=== PATIENT | female | born 1945 | race Hispanic/Latino ===

== ENCOUNTER 2020-08-09 07:44 | Outpatient (CLI) | payer OTHER ==
[2020-08-09 17:06] LABS: SARS-CoV-2 MS2 Positive; SARS-CoV-2 N Gene Negative; SARS-CoV-2 S Gene Negative; SARS-CoV-2 by NAA Not Detected (NotDetected); SARS-CoV-2 orf1ab Negative
== END 2020-08-09 07:45 | disposition home or self-care (01) ==
LOC: LABBT 07:44
PROVIDERS: ATTEND Family Medicine
DX: H43.12 Vitreous hemorrhage, left eye (principal); Z20.828 Contact with and (suspected) exposure to other viral communicable diseases
CPT/HCPCS: 87635; U0003

== ENCOUNTER 2020-08-14 09:43 | Day surgery (SDC) | payer MEDICARE ==
[2020-08-13 15:37] VITALS: BMI 30.7
[~2020-08-14 09:43] MED LIST: EPINEPHrine 0.3 MG in Ophthalmic Irrigation Solution 500 ML IRR SCH; Fentanyl 100 MCG/2 ML VIAL ONE; Midazolam HCl 2 mg/2 ml Vial ONE
[2020-08-14] MEDS ORDERED: Phenylephrine 2.5% Ophth Soln 5 ML BOT ONE (10:32)
[2020-08-14] MEDS ORDERED: Cyclopentolate 1% Opth Drop 2 ML BOT ONE (10:32)
[2020-08-14] MEDS ORDERED: Triamcinolone 40 MG/ML VIAL ONE (12:27)
[2020-08-14] MEDS ORDERED: Maxitrol 0.1% Opth Oint 3.5 GM TUBE ONE (12:27)
[2020-08-14] MEDS ORDERED: Bupivacaine PF 0.75% SDV 10 ML ONE (12:27)
[2020-08-14] MEDS ORDERED: Lidocaine 4% PF 5 ML AMP ONE (12:27)
--- NOTE | 2020-08-14 17:36 | OP ---
DATE OF PROCEDURE: 08/14/2020 PRINCIPAL PREOPERATIVE DIAGNOSES: 1. Proliferative diabetic retinopathy, left eye. 2. Vitreous hemorrhage, left eye. POSTOPERATIVE DIAGNOSES: 1. Proliferative diabetic retinopathy, left eye. 2. Vitreous hemorrhage, left eye. PROCEDURES PERFORMED: 1. 25-gauge pars plana vitrectomy, left eye. 2. Endolaser panretinal photocoagulation, left eye. ESTIMATED BLOOD LOSS: None. SPECIMENS REMOVED: None. COMPLICATIONS: None. ANESTHESIA: MAC with sub-Tenon's block. DESCRIPTION OF PROCEDURE: The patient was identified in the preoperative holding area, where the correct eye being the left eye was marked for surgery. The patient was taken to the operating room, where MAC anesthesia was induced. The left eye was prepped and draped in the usual sterile ophthalmic fashion for surgery. A wire-clip lid speculum was placed. An inferonasal conjunctival peritomy was fashioned with Lea scissors for administration of sub-Tenon's block. The block consisted of 1:1 ratio of 4% lidocaine and 0.75% Marcaine. A total of 5 mL was administered. A standard 25-gauge pars plana vitrectomy platform was fashioned with trocars placed approximately 3.5 mm from the limbus. The infusion was noted to be within the vitreous cavity prior to being turned on to an infusion pressure of 30 mmHg. The light pipe and microvitrector were introduced in the eye under visualization of the BIOM viewing system. A significant vitreous hemorrhage was noted within the vitreous cavity. A careful core and peripheral shave vitrectomy were performed. The vitreous hemorrhage was removed to the safest extent possible. Some vitreous hemorrhage was caked onto the retina inferiorly. An area of prior panretinal photocoagulation and therefore was not able to be safely removed. Following vitrectomy, endolaser was used to provide panretinal photocoagulation posterior to the preexisting panretinal photocoagulation. The cannulas were sequentially removed. All sclerotomies were noted to be watertight. Subconjunctival Kenalog was injected. The wire-cut lid speculum was removed followed by application of TobraDex ophthalmic ointment and a light patch and shield. The patient tolerated the procedure well and was taken to outpatient recovery area in good condition. Job ID: [id number]
== END 2020-08-14 12:40 | disposition home or self-care (01) ==
LOC: SDC 09:43
PROVIDERS: ATTEND Ophthalmology Retina Specialist
PROC: 08T53ZZ Resection of Left Vitreous, Percutaneous Approach (ICD-10-PCS; principal; 2020-08-14)
PROC: 08QF3ZZ Repair Left Retina, Percutaneous Approach (ICD-10-PCS; 2020-08-14)
DX: E11.3592 Type 2 diabetes mellitus with proliferative diabetic retinopathy without macular edema, left eye (principal); H43.12 Vitreous hemorrhage, left eye; Z79.4 Long term (current) use of insulin; Z79.899 Other long term (current) drug therapy; Z88.0 Allergy status to penicillin; Z91.048 Other nonmedicinal substance allergy status
CPT/HCPCS: 36416; J0171; J2001; J2250; J3010; J3301; J3490

== ENCOUNTER 2020-10-11 00:40 | Emergency (ER) | payer MEDICARE ==
[2020-10-11] MEDS ORDERED: Ibuprofen 800 MG TAB ONE ×2 (02:38→02:39)
--- NOTE | 2020-10-11 08:02 | RAD ---
3 views of the left ankle: 10/11/2020 COMPARISON: None available HISTORY: Leg pain, diabetic neuropathy FINDINGS: Soft tissue swelling is seen laterally. There is postoperative hardware within the proximal /mid fifth metatarsal shaft. The talar dome and ankle mortise demonstrate no acute findings. There is anterior soft tissue swelling on the lateral view. There is enthesophyte formation at the origin o f the plantar aponeurosis. Vascular calcifications overlie the left ankle. Moderate midfoot degenerative change present. IMPRESSION: Chronic findings as detailed above. No acute fracture or dislocation. Nonspecific lateral and anterior soft tissue swelling.
== END 2020-10-11 03:12 | disposition home or self-care (01) ==
LOC: ERS 00:40
DX: M25.572 Pain in left ankle and joints of left foot (principal); E11.40 Type 2 diabetes mellitus with diabetic neuropathy, unspecified

== ENCOUNTER 2020-10-22 09:45 | Outpatient (CLI) | payer MEDICARE ==
--- NOTE | 2020-10-22 12:27 | BD ---
BONE DENSITOMETRY USING DEXA: Date: 10/22/2020 HISTORY: Postmenopausal screening for osteoporosis. FINDINGS: Lumbar Spine: BMD (g/cm2) L1 0.683 T-Score: -2.8 Z-Score: -0.7 L2 0.740 T-Score: -2.6 Z-Score: -0.3 L3 0.748 T-Score: -3.1 Z-Score: -0.6 L4 0.693 T-Score: -3.3 Z-Score: -0.9 L1-L4 0.715 T-Score: -3.0 Z-Score: -0.7 Femoral Neck: 0.518 T-Score: -3.0 Z-Score: -1.0 Total Femur: 0.719 T-Score: -1.8 Z-Score: -0.1 IMPRESSION: Osteoporosis. POS: AH
== END 2020-10-22 09:46 | disposition home or self-care (01) ==
LOC: BICMAMMO 09:45
PROVIDERS: ATTEND Internal Medicine
DX: M81.0 Age-related osteoporosis without current pathological fracture (principal)
CPT/HCPCS: 77080

== ENCOUNTER 2020-11-14 11:23 | Outpatient (CLI) | payer MEDICARE | END 2020-11-14 11:24 | disposition home or self-care (01) | LOC: DTY/OP 11:23 → MWLC DTY 11:24 | PROVIDERS: ATTEND Internal Medicine | DX: E11.42 Type 2 diabetes mellitus with diabetic polyneuropathy (principal); E11.22 Type 2 diabetes mellitus with diabetic chronic kidney disease; N18.31 Chronic kidney disease, stage 3a | CPT/HCPCS: 97802 ==

== ENCOUNTER 2021-02-13 17:06 | Emergency (ER) | payer MEDICARE ==
[~2021-02-13 17:06] MED LIST changes: -EPINEPHrine 0.3 MG in Ophthalmic Irrigation Solution 500 ML IRR SCH; -Fentanyl 100 MCG/2 ML VIAL ONE; +Iopamidol-370 76% 500 ML 1 ML ONE; -Midazolam HCl 2 mg/2 ml Vial ONE
[2021-02-13] MEDS ORDERED: Morphine 4 MG/ML VIAL ONE ×2 (17:36→18:07)
[2021-02-13] MEDS ORDERED: Ondansetron PF 4 MG/2 ML Vial ONE (17:36)
[2021-02-13 18:03] LABS: #Eosinphils 0.1 thou/uL (0.0-0.7); #Lymphocytes 0.7 thou/uL (1.20-3.40); #Monocytes 0.2 thou/uL (0.11-0.59); #Neutrophils 7.3 thou/uL (1.40-6.50); %Basophils 0.1 % (0.0-1.0); %Eosinophils 0.9 % (0.0-10.0); %Lymphocytes 8.9 % (21.0-51.0); %Monocytes 2.5 % (0.0-10.0); %Neutrophils 87.7 % (42.0-75.0); Hemoglobin 12.6 g/dL (12.0-16.0); Mean Corpuscular HGB CONC 34.8 g/dL (32.0-36.0); Mean Corpuscular Hemoglobin 31.3 pg (27.0-31.0); Mean Corpuscular Volume 90.2 fL (78.0-98.0); Mean Platelet Volume 8.5 fL (7.4-10.4); Platelet Count 87 thou/uL (130-400); RBC Distribution Width 11.8 % (11.5-14.5); Red Blood Cell (RBC) Count 4.03 mill/uL (4.20-5.40); White Blood Cell (WBC) Count 8.4 thou/uL (4.8-10.8)
[2021-02-13 18:25] LABS: ALT (SGPT) 40 U/L (8-55); AST (SGOT) 77 U/L (5-34); Albumin 3.4 g/dL (3.4-4.8); Alkaline Phosphatase 233 U/L (40-110); Anion Gap 13 mmol/L (10-20); BUN (Urea Nitrogen) 25 mg/dL (9.8-20.1); Bilirubin, Total 0.6 mg/dL (0.2-1.2); Calc. Creatinine Clearance 0 mL/min (70-130); Calcium 8.8 mg/dL (7.8-10.44); Carbon Dioxide 25 mmol/L (23-31); Chloride 103 mmol/L (98-107); Globulin 3.9 g/dL (2.4-3.5); Glucose 200 mg/dL (83-110); Lipase 45 U/L (8-78); Potassium 3.7 mmol/L (3.5-5.1); Protein, Total 7.3 g/dL (5.8-8.1); Sodium 137 mmol/L (136-145)
[2021-02-13 18:43] LABS: Bilirubin Negative (Negative); Blood, Urine 1+ (Negative); Clarity Turbid (Clear); Glucose, Urine (Dipstick) Greater than 1000 mg/dL (Negative); Ketone, Urine Negative (Negative); Leukocyte 500 Leu/uL (Negative); Nitrite Negative (Negative); Protein, Urine (Dipstick) 20 mg/dL (Neg-Trace); Specific Gravity, Urine 1.011 (1.002-1.036); Squamous Epithelial 0-3 HPF (0-3); Urobilinogen Normal mg/dL (Less than 2); WBC/HPF Greater than 50 HPF (0-3)
[2021-02-13 18:44] LABS: Bacteria/HPF 1+ HPF (None Seen)
[2021-02-13] MEDS ORDERED: cefTRIAXone\\ROCEPHIN 2 GM VIAL ONE (19:05)
== END 2021-02-13 20:19 | disposition home or self-care (01) ==
LOC: ERS 17:06
DX: N12 Tubulo-interstitial nephritis, not specified as acute or chronic (principal); R94.5 Abnormal results of liver function studies; E11.40 Type 2 diabetes mellitus with diabetic neuropathy, unspecified; Z79.4 Long term (current) use of insulin
CPT/HCPCS: 36415; 74177; 80053; 81003; 81015; 83690; 85025; 87077; 87086; 87186; 93005; 96365; 96375; J0696; J2270; J2405; Q9967

== ENCOUNTER 2021-02-25 12:29 | Emergency (ER) | payer MEDICARE ==
[2021-02-25] MEDS ORDERED: Ondansetron PF 4 MG/2 ML Vial ONE (12:45)
[2021-02-25] MEDS ORDERED: Sucralfate 1 GM/10 ML UDCUP ONE (13:10)
[2021-02-25 13:19] LABS: #Basophils 0.1 thou/uL (0.0-0.2); #Eosinphils 0.1 thou/uL (0.0-0.7); #Lymphocytes 0.6 thou/uL (1.20-3.40); #Monocytes 0.1 thou/uL (0.11-0.59); #Neutrophils 5.4 thou/uL (1.40-6.50); %Basophils 1.1 % (0.0-1.0); %Eosinophils 1.8 % (0.0-10.0); %Lymphocytes 9.6 % (21.0-51.0); %Monocytes 0.8 % (0.0-10.0); %Neutrophils 86.7 % (42.0-75.0); Hemoglobin 12.1 g/dL (12.0-16.0); Mean Corpuscular HGB CONC 32.9 g/dL (32.0-36.0); Mean Corpuscular Hemoglobin 29.7 pg (27.0-31.0); Mean Corpuscular Volume 90.3 fL (78.0-98.0); Mean Platelet Volume 8.1 fL (7.4-10.4); Platelet Count 110 thou/uL (130-400); RBC Distribution Width 11.9 % (11.5-14.5); Red Blood Cell (RBC) Count 4.08 mill/uL (4.20-5.40); White Blood Cell (WBC) Count 6.3 thou/uL (4.8-10.8)
[2021-02-25 13:35] LABS: ALT (SGPT) 25 U/L (8-55); AST (SGOT) 35 U/L (5-34); Albumin 3.2 g/dL (3.4-4.8); Alkaline Phosphatase 159 U/L (40-110); Anion Gap 13 mmol/L (10-20); BUN (Urea Nitrogen) 21 mg/dL (9.8-20.1); Bilirubin, Total 0.8 mg/dL (0.2-1.2); Calc. Creatinine Clearance 0 mL/min (70-130); Calcium 8.6 mg/dL (7.8-10.44); Carbon Dioxide 26 mmol/L (23-31); Chloride 102 mmol/L (98-107); Globulin 3.7 g/dL (2.4-3.5); Glucose 349 mg/dL (83-110); Lipase 33 U/L (8-78); Potassium 4.2 mmol/L (3.5-5.1); Protein, Total 6.9 g/dL (5.8-8.1); Sodium 137 mmol/L (136-145)
== END 2021-02-25 15:10 | disposition home or self-care (01) ==
LOC: ERS 12:29
DX: R11.2 Nausea with vomiting, unspecified (principal); R10.84 Generalized abdominal pain; E11.40 Type 2 diabetes mellitus with diabetic neuropathy, unspecified; R19.7 Diarrhea, unspecified
CPT/HCPCS: 36415; 36416; 74177; 80053; 83690; 84484; 85025; 86140; 93005; 96374; J2405

== ENCOUNTER 2021-09-27 14:03 | Outpatient (CLI) | payer MEDICARE ==
[2021-09-28 13:56] LABS: SARS-CoV-2 PCR by NAA Not Detected (NotDetected)
== END 2021-09-27 14:04 | disposition home or self-care (01) ==
LOC: LABBT 14:03
PROVIDERS: ATTEND Ophthalmology Retina Specialist
DX: Z01.812 Encounter for preprocedural laboratory examination (principal); Z20.822 Contact with and (suspected) exposure to COVID-19
CPT/HCPCS: U0003; U0005

== ENCOUNTER 2021-10-01 08:02 | Day surgery (SDC) | payer MEDICARE ==
[2021-09-30 12:00] VITALS: BMI 28.3
[~2021-10-01 08:02] MED LIST changes: +EPINEPHrine 0.3 MG in Ophthalmic Irrigation Solution 500 ML IRR SCH; +Fentanyl 100 MCG/2 ML VIAL ONE; -Iopamidol-370 76% 500 ML 1 ML ONE; +Midazolam HCl 2 mg/2 ml Vial ONE
[2021-10-01] MEDS ORDERED: Cyclopentolate 1% Opth Drop 2 ML BOT ONE (08:17)
[2021-10-01] MEDS ORDERED: Phenylephrine 2.5% Ophth Soln 5 ML BOT ONE (08:17)
[2021-10-01] MEDS ORDERED: Famotidine/PF 20 mg/2ml Vial ONE (08:58)
[2021-10-01] MEDS ORDERED: Maxitrol 0.1% Opth Oint 3.5 GM TUBE ONE (10:33)
[2021-10-01] MEDS ORDERED: Bupivacaine PF 0.75% SDV 10 ML ONE (10:33)
[2021-10-01] MEDS ORDERED: Lidocaine 4% PF 5 ML AMP ONE (10:33)
[2021-10-01] MEDS ORDERED: Triamcinolone 40 MG/ML VIAL ONE (10:33)
[2021-10-01] MEDS ORDERED: PROPOFOL 200 MG/20 ML VIAL ONE (10:33)
== END 2021-10-01 11:48 | disposition home or self-care (01) ==
LOC: SDC 08:02
PROVIDERS: ATTEND Ophthalmology Retina Specialist
PROC: 08T53ZZ Resection of Left Vitreous, Percutaneous Approach (ICD-10-PCS; principal; 2021-10-01)
PROC: 08QF3ZZ Repair Left Retina, Percutaneous Approach (ICD-10-PCS; 2021-10-01)
DX: H43.12 Vitreous hemorrhage, left eye (principal); Z79.4 Long term (current) use of insulin; Z88.0 Allergy status to penicillin; Z91.048 Other nonmedicinal substance allergy status
CPT/HCPCS: 36416; J0171; J2250; J2704; J3010; J3301; J3490; S0028

== ENCOUNTER 2021-10-24 14:44 | Emergency (ER) | payer MEDICARE ==
[2021-10-24] MEDS ORDERED: Ondansetron PF 4 MG/2 ML Vial ONE (15:38)
[2021-10-24 16:13] LABS: #Lymphocytes 1.3 thou/uL (1.20-3.40); #Monocytes 0.2 thou/uL (0.11-0.59); #Neutrophils 2.4 thou/uL (1.40-6.50); %Eosinophils 0.2 % (0.0-10.0); %Lymphocytes 32.9 % (21.0-51.0); %Monocytes 5.7 % (0.0-10.0); %Neutrophils 61.2 % (42.0-75.0); Hemoglobin 13.5 g/dL (12.0-16.0); Mean Corpuscular HGB CONC 34.9 g/dL (32.0-36.0); Mean Corpuscular Hemoglobin 31.6 pg (27.0-31.0); Mean Corpuscular Volume 90.7 fL (78.0-98.0); Mean Platelet Volume 7.9 fL (7.4-10.4); Platelet Count 72 thou/uL (130-400); RBC Distribution Width 11.8 % (11.5-14.5); Red Blood Cell (RBC) Count 4.27 mill/uL (4.20-5.40)
[2021-10-24 16:44] LABS: ALT (SGPT) 25 U/L (8-55); AST (SGOT) 37 U/L (5-34); Albumin 3.2 g/dL (3.4-4.8); Alkaline Phosphatase 177 U/L (40-110); Anion Gap 14 mmol/L (10-20); BUN (Urea Nitrogen) 29 mg/dL (9.8-20.1); Bilirubin, Total 0.9 mg/dL (0.2-1.2); Calc. Creatinine Clearance 0 mL/min (70-130); Calcium 8.8 mg/dL (7.8-10.44); Carbon Dioxide 27 mmol/L (23-31); Chloride 100 mmol/L (98-107); Globulin 4.3 g/dL (2.4-3.5); Glucose 269 mg/dL (83-110); Potassium 4.4 mmol/L (3.5-5.1); Protein, Total 7.5 g/dL (5.8-8.1); Sodium 137 mmol/L (136-145)
== END 2021-10-24 19:17 | disposition home or self-care (01) ==
LOC: ERS 14:44
DX: U07.1 COVID-19 (principal); J12.82 Pneumonia due to coronavirus disease 2019; R94.5 Abnormal results of liver function studies; E11.40 Type 2 diabetes mellitus with diabetic neuropathy, unspecified; Z79.4 Long term (current) use of insulin
CPT/HCPCS: 71045; 80053; 85025; 93005; 96374; J2405

== ENCOUNTER 2021-11-02 19:45 | Inpatient (IN) | payer MEDICARE, OTHER ==
[~2021-11-02 19:45] MED LIST changes: -EPINEPHrine 0.3 MG in Ophthalmic Irrigation Solution 500 ML IRR SCH; -Fentanyl 100 MCG/2 ML VIAL ONE; +Iopamidol-370 76% 500 ML 1 ML ONE; -Midazolam HCl 2 mg/2 ml Vial ONE
[2021-11-02 21:01] LABS: Actual Bicarbonate (HCO3v) 26 mEq/L (22-28); Analyzer IN Cardio ER; Base Excess 1.8 mEq/L (-2.0 to +3.0); Calcium, Ionized (venous) 1.03 mmol/L (1.16-1.32); Chloride (VBG) 98 mmol/L (98-106); Hemoglobin (Hb) 13.3 g/dL (11.7-16.1); Potassium (VBG) 3.63 mmol/L (3.70-5.30); Sodium 133.6 mmol/L (133-146); pH (venous) 7.46 (7.32-7.43)
[2021-11-02 21:10] LABS: #Eosinphils 0.1 thou/uL (0.0-0.7); #Monocytes 0.4 thou/uL (0.11-0.59); #Neutrophils 3.9 thou/uL (1.40-6.50); %Basophils 0.3 % (0.0-1.0); %Eosinophils 1.3 % (0.0-10.0); %Lymphocytes 18.8 % (21.0-51.0); %Monocytes 7.1 % (0.0-10.0); %Neutrophils 72.6 % (42.0-75.0); Hemoglobin 12.5 g/dL (12.0-16.0); Mean Corpuscular HGB CONC 34.7 g/dL (32.0-36.0); Mean Corpuscular Hemoglobin 30.9 pg (27.0-31.0); Platelet Count 160 thou/uL (130-400); RBC Distribution Width 11.9 % (11.5-14.5); Red Blood Cell (RBC) Count 4.04 mill/uL (4.20-5.40); White Blood Cell (WBC) Count 5.4 thou/uL (4.8-10.8)
[2021-11-02 21:24] LABS: ALT (SGPT) 13 U/L (8-55); AST (SGOT) 17 U/L (5-34); Albumin 2.6 g/dL (3.4-4.8); Alkaline Phosphatase 128 U/L (40-110); Anion Gap 13 mmol/L (10-20); BUN (Urea Nitrogen) 28 mg/dL (9.8-20.1); Bilirubin, Total 0.6 mg/dL (0.2-1.2); CK (CPK) 15 U/L (29-168); Calc. Creatinine Clearance 0 mL/min (70-130); Calcium 8.1 mg/dL (7.8-10.44); Carbon Dioxide 29 mmol/L (23-31); Chloride 97 mmol/L (98-107); Globulin 3.5 g/dL (2.4-3.5); Glucose 446 mg/dL (83-110); Lipase 58 U/L (8-78); Potassium 3.7 mmol/L (3.5-5.1); Protein, Total 6.1 g/dL (5.8-8.1); Sodium 135 mmol/L (136-145)
[2021-11-02] MEDS ORDERED: cefTRIAXone\\ROCEPHIN 1 GM VIAL ONE (22:34)
[2021-11-02] MEDS ORDERED: Azithromycin 500 MG VIAL ONE (22:34)
[2021-11-02] MEDS ORDERED: Insulin Regular 300 UNITS/3 ML VIAL ONE (22:35)
[2021-11-02] MEDS ORDERED: Ondansetron PF 4 MG/2 ML Vial IVP PRN (22:45)
[2021-11-02] MEDS ORDERED: Ondansetron ODT 4 MG TAB SL PRN (22:45)
[2021-11-02 23:24] LABS: Bacteria/HPF 2+ HPF (None Seen); Bilirubin Negative (Negative); Blood, Urine Negative (Negative); Clarity Turbid (Clear); Glucose, Urine (Dipstick) Greater than 1000 mg/dL (Negative); Ketone, Urine Negative (Negative); Leukocyte Negative Leu/uL (Negative); Nitrite 2+ (Negative); Protein, Urine (Dipstick) Negative (Neg-Trace); RBC/HPF None Seen HPF (0-3); Specific Gravity, Urine 1.031 (1.002-1.036); Squamous Epithelial None Seen HPF (0-3); WBC/HPF 0-3 HPF (0-3)
[2021-11-03 00:39] VITALS: BMI 24.6
[2021-11-03] MEDS: Sodium Chloride 0.9% 1,000 ML IV SCH ×2 (01:12→10:19)
[2021-11-03] MEDS ORDERED: Acetaminophen 325 MG TAB PO PRN (08:28)
[2021-11-03] MEDS ORDERED: Loperamide HCl 2 MG CAP PO PRN ×2 (08:28)
[2021-11-03] MEDS ORDERED: HYDROcodone/Acetaminophen 5/325 mg Tablet PO PRN (08:28)
[2021-11-03] MEDS ORDERED: Dextrose 5% in Water 1,000 ML IV PRN (08:32)
[2021-11-03] MEDS ORDERED: Dextrose 50% Abboject 50 ML SYRINGE SLOW IVP PRN (08:32)
[2021-11-03] MEDS ORDERED: Famotidine 20 MG TAB PO SCH (09:00)
[2021-11-03] MEDS ORDERED: Insulin Glargine 25 UNITS in Pre-Filled Syringe 1 EACH SC SCH (09:00)
[2021-11-03] MEDS ORDERED: Albuterol 200 PUFF (6.7GM INHALER) INH PRN (09:45)
[2021-11-03] MEDS: Ascorbic Acid 500 mg Chewable Tablet PO SCH (10:09)
[2021-11-03] MEDS: Cholecalciferol (Vitamin D3) 400 UNITS TAB PO SCH (10:09)
[2021-11-03] MEDS: Zinc Sulfate 220 MG CAP PO SCH (10:10)
[2021-11-03] MEDS: Enoxaparin Sodium 40 MG/0.4 ML SYRINGE SC SCH (10:12)
[2021-11-03] MEDS: Dexamethasone 4 mg/ml Vial SLOW IVP SCH (10:45)
[2021-11-03] MEDS: HumaLOG 300 UNITS/3 ML VIAL SC PRN (17:32)
[2021-11-03] MEDS: Lantus 1000 UNITS/10 ML VIAL SC SCH (21:14)
[2021-11-03] MEDS: cefTRIAXone\\ROCEPHIN 1 GM in Sodium Chloride 0.9% 100 ML IVPB SCH (23:59)
[2021-11-04] MEDS: HumaLOG 300 UNITS/3 ML VIAL SC PRN ×2 (06:22→17:34)
[2021-11-04 08:12] LABS: Hemoglobin A1c 11.6 % (4.0-6.0)
[2021-11-04 08:20] LABS: #Basophils 0.1 thou/uL (0.0-0.2); #Lymphocytes 0.8 thou/uL (1.20-3.40); #Monocytes 0.1 thou/uL (0.11-0.59); #Neutrophils 3.1 thou/uL (1.40-6.50); %Basophils 2.3 % (0.0-1.0); %Eosinophils 0.2 % (0.0-10.0); %Lymphocytes 20.4 % (21.0-51.0); %Monocytes 2.6 % (0.0-10.0); %Neutrophils 74.5 % (42.0-75.0); Hemoglobin 12.3 g/dL (12.0-16.0); Mean Corpuscular HGB CONC 33.5 g/dL (32.0-36.0); Mean Corpuscular Hemoglobin 30.2 pg (27.0-31.0); Mean Corpuscular Volume 90.4 fL (78.0-98.0); Mean Platelet Volume 7.4 fL (7.4-10.4); Platelet Count 144 thou/uL (130-400); RBC Distribution Width 12.1 % (11.5-14.5); Red Blood Cell (RBC) Count 4.07 mill/uL (4.20-5.40); White Blood Cell (WBC) Count 4.1 thou/uL (4.8-10.8)
[2021-11-04 08:32] LABS: ALT (SGPT) 17 U/L (8-55); AST (SGOT) 19 U/L (5-34); Albumin 2.5 g/dL (3.4-4.8); Alkaline Phosphatase 104 U/L (40-110); Anion Gap 14 mmol/L (10-20); BUN (Urea Nitrogen) 11 mg/dL (9.8-20.1); Bilirubin, Total 0.4 mg/dL (0.2-1.2); CRP (Inflammatory) 4.74 mg/dL (= or < 0.5); Calc. Creatinine Clearance 61 mL/min (70-130); Calcium 7.5 mg/dL (7.8-10.44); Carbon Dioxide 23 mmol/L (23-31); Chloride 103 mmol/L (98-107); Globulin 3.8 g/dL (2.4-3.5); Glucose 195 mg/dL (83-110); Protein, Total 6.3 g/dL (5.8-8.1); Sodium 137 mmol/L (136-145)
[2021-11-04] MEDS: Enoxaparin Sodium 40 MG/0.4 ML SYRINGE SC SCH (08:53)
[2021-11-04] MEDS: Dexamethasone 4 mg/ml Vial SLOW IVP SCH (08:54)
[2021-11-04] MEDS: Zinc Sulfate 220 MG CAP PO SCH (08:54)
[2021-11-04] MEDS: Cholecalciferol (Vitamin D3) 400 UNITS TAB PO SCH (08:54)
[2021-11-04] MEDS: Ascorbic Acid 500 mg Chewable Tablet PO SCH (08:54)
[2021-11-04] MEDS ORDERED: Potassium Chloride 20 MEQ TAB PO SCH (09:30)
[2021-11-04] MEDS: Lantus 1000 UNITS/10 ML VIAL SC SCH (20:15)
[2021-11-04] MEDS: cefTRIAXone\\ROCEPHIN 1 GM in Sodium Chloride 0.9% 100 ML IVPB SCH (23:18)
[2021-11-05] MEDS: HumaLOG 300 UNITS/3 ML VIAL SC PRN ×2 (06:08→14:05)
[2021-11-05 07:39] LABS: Anion Gap 12 mmol/L (10-20); BUN (Urea Nitrogen) 15 mg/dL (9.8-20.1); Calc. Creatinine Clearance 55 mL/min (70-130); Calcium 8.1 mg/dL (7.8-10.44); Carbon Dioxide 25 mmol/L (23-31); Chloride 104 mmol/L (98-107); Glucose 202 mg/dL (83-110); Potassium 3.6 mmol/L (3.5-5.1); Sodium 137 mmol/L (136-145)
[2021-11-05] MEDS: Zinc Sulfate 220 MG CAP PO SCH (09:38)
[2021-11-05] MEDS: Enoxaparin Sodium 40 MG/0.4 ML SYRINGE SC SCH (09:38)
[2021-11-05] MEDS: Ascorbic Acid 500 mg Chewable Tablet PO SCH (09:38)
[2021-11-05] MEDS: Cholecalciferol (Vitamin D3) 400 UNITS TAB PO SCH (09:38)
[2021-11-05 10:01] VITALS: BP 90/57; TEMP 97.4
[2021-11-05] MEDS ORDERED: Dexamethasone 4 mg/ml Vial ONE (14:00)
[2021-11-05] MEDS: Dexamethasone 4 mg/ml Vial SLOW IVP SCH (14:05)
== END 2021-11-05 17:10 | disposition home or self-care (01) | DRG 177 ==
LOC: ERS 19:45 → T4-B 22:41
PROVIDERS: ADMIT Student in an Organized Health Care Education/Training Program; ATTEND Family Medicine
DX: U07.1 COVID-19 (principal); J96.01 Acute respiratory failure with hypoxia; J12.82 Pneumonia due to coronavirus disease 2019; N39.0 Urinary tract infection, site not specified; N17.9 Acute kidney failure, unspecified; E86.9 Volume depletion, unspecified; E11.65 Type 2 diabetes mellitus with hyperglycemia; E11.40 Type 2 diabetes mellitus with diabetic neuropathy, unspecified; M81.0 Age-related osteoporosis without current pathological fracture; Z79.4 Long term (current) use of insulin; Z90.49 Acquired absence of other specified parts of digestive tract; Z90.710 Acquired absence of both cervix and uterus; Z88.0 Allergy status to penicillin; Z91.048 Other nonmedicinal substance allergy status
CPT/HCPCS: 36415; 36416; 71045; 71275; 80048; 80053; 81003; 81015; 82010; 82550; 82805; 83036; 83605; 83690; 83880; 83930; 84484; 85025; 86140; 87040; 87086; 93005; 94760; J0456; J0696; J1100; J1650; J1815; J3490; J7050; Q9967

== ENCOUNTER 2022-02-25 12:04 | Observation (INO) | payer OTHER ==
[2022-02-25 12:57] LABS: #Basophils 0.1 thou/uL (0.0-0.2); #Eosinphils 0.2 thou/uL (0.0-0.7); #Lymphocytes 1.9 thou/uL (1.20-3.40); #Monocytes 0.4 thou/uL (0.11-0.59); #Neutrophils 2.6 thou/uL (1.40-6.50); %Basophils 1.9 % (0.0-1.0); %Eosinophils 3.4 % (0.0-10.0); %Lymphocytes 37.5 % (21.0-51.0); %Monocytes 7.3 % (0.0-10.0); %Neutrophils 49.8 % (42.0-75.0); Hemoglobin 11.6 g/dL (12.0-16.0); Mean Corpuscular HGB CONC 33.7 g/dL (32.0-36.0); Mean Corpuscular Hemoglobin 31.4 pg (27.0-31.0); Mean Corpuscular Volume 93.3 fL (78.0-98.0); Mean Platelet Volume 7.7 fL (7.4-10.4); Platelet Count 99 thou/uL (130-400); Red Blood Cell (RBC) Count 3.69 mill/uL (4.20-5.40); White Blood Cell (WBC) Count 5.1 thou/uL (4.8-10.8)
[2022-02-25 13:16] LABS: ALT (SGPT) 22 U/L (8-55); AST (SGOT) 27 U/L (5-34); Albumin 3.1 g/dL (3.4-4.8); Alkaline Phosphatase 152 U/L (40-110); Anion Gap 10 mmol/L (10-20); BUN (Urea Nitrogen) 27 mg/dL (9.8-20.1); Bilirubin, Total 0.5 mg/dL (0.2-1.2); Calc. Creatinine Clearance 0 mL/min (70-130); Calcium 8.4 mg/dL (7.8-10.44); Carbon Dioxide 24 mmol/L (23-31); Chloride 107 mmol/L (98-107); Globulin 3.1 g/dL (2.4-3.5); Glucose 156 mg/dL (83-110); Lipase 93 U/L (8-78); Potassium 4.3 mmol/L (3.5-5.1); Protein, Total 6.2 g/dL (5.8-8.1); Sodium 137 mmol/L (136-145)
[2022-02-25] MEDS ORDERED: Ondansetron PF 4 MG/2 ML Vial IVP PRN (14:34)
[2022-02-25] MEDS ORDERED: Nitroglycerin 0.4 MG TAB (25 Tab Bottle) SL PRN (14:34)
[2022-02-25] MEDS ORDERED: Acetaminophen 325 MG TAB PO PRN (14:34)
[2022-02-25] MEDS ORDERED: hydrALAZINE 20 MG/ML VIAL SLOW IVP PRN (14:34)
[2022-02-25] MEDS ORDERED: Ondansetron ODT 4 MG TAB PO PRN (14:34)
[2022-02-25] MEDS ORDERED: Aspirin Chewable 81 MG TAB PO SCH (15:00)
[2022-02-25 16:18] VITALS: BMI 27.1
[2022-02-25] MEDS ORDERED: HumaLOG 300 UNITS/3 ML VIAL SC PRN ×2 (16:34)
[2022-02-25] MEDS ORDERED: Dextrose 50% Abboject 50 ML SYRINGE SLOW IVP PRN (16:34)
[2022-02-25] MEDS ORDERED: Dextrose 5% in Water 1,000 ML IV PRN (16:34)
[2022-02-25] MEDS ORDERED: Aspirin 81 mg Enteric Coated Tablet PO SCH (16:45)
[2022-02-25 17:15] LABS: Troponin I Less than 0.010 ng/mL (< 0.028)
[2022-02-25 18:50] LABS: SARS-CoV-2 NAA Rapid Test Not Detected (NotDetected)
[2022-02-25 20:17] LABS: Troponin I Less than 0.010 ng/mL (< 0.028)
[2022-02-25] MEDS ORDERED: Atorvastatin Calcium 40 MG TAB PO SCH (21:00)
[2022-02-25] MEDS ORDERED: Insulin Glargine 30 UNITS/0.3 ML VIAL SC SCH (21:00)
[2022-02-26 05:21] LABS: #Eosinphils 0.2 thou/uL (0.0-0.7); #Lymphocytes 2.1 thou/uL (1.20-3.40); #Monocytes 0.3 thou/uL (0.11-0.59); #Neutrophils 2.6 thou/uL (1.40-6.50); %Basophils 0.9 % (0.0-1.0); %Eosinophils 3.4 % (0.0-10.0); %Lymphocytes 40.1 % (21.0-51.0); %Monocytes 6.2 % (0.0-10.0); %Neutrophils 49.4 % (42.0-75.0); Hemoglobin 12.9 g/dL (12.0-16.0); Mean Corpuscular HGB CONC 33.1 g/dL (32.0-36.0); Mean Corpuscular Hemoglobin 31.3 pg (27.0-31.0); Mean Corpuscular Volume 94.3 fL (78.0-98.0); Mean Platelet Volume 7.8 fL (7.4-10.4); Platelet Count 104 thou/uL (130-400); Red Blood Cell (RBC) Count 4.13 mill/uL (4.20-5.40); White Blood Cell (WBC) Count 5.2 thou/uL (4.8-10.8)
[2022-02-26 05:34] LABS: Anion Gap 11 mmol/L (10-20); BUN (Urea Nitrogen) 20 mg/dL (9.8-20.1); Calc. Creatinine Clearance 63 mL/min (70-130); Calcium 8.9 mg/dL (7.8-10.44); Carbon Dioxide 25 mmol/L (23-31); Cardiac Risk 2.6 (Less than 4.5); Chloride 108 mmol/L (98-107); Cholesterol 121 mg/dl (< 200 Desired); Glucose 97 mg/dL (83-110); HDL Cholesterol 46 mg/dL (>60 Neg Risk); LDL Cholesterol, Calculated 58 mg/dL; Potassium 3.8 mmol/L (3.5-5.1); Sodium 140 mmol/L (136-145); Triglycerides 87 mg/dL (Less than 150)
[2022-02-26] MEDS ORDERED: Aspirin Chewable 81 MG TAB PO SCH (09:00)
[2022-02-26] MEDS ORDERED: Enoxaparin Sodium 40 MG/0.4 ML SYRINGE SC SCH (09:00)
[2022-02-26] MEDS ORDERED: ADENOSINE 60 MG/20 ML VIAL ONE (09:07)
[2022-02-26 15:56] VITALS: BP 141/70; TEMP 97.8
== END 2022-02-26 17:53 | disposition home or self-care (01) ==
LOC: ERS 12:04 → 2SW 13:51
PROVIDERS: ADMIT Internal Medicine; ATTEND Internal Medicine
DX: R07.2 Precordial pain (principal); R20.0 Anesthesia of skin; E11.42 Type 2 diabetes mellitus with diabetic polyneuropathy; I12.9 Hypertensive chronic kidney disease with stage 1 through stage 4 chronic kidney disease, or unspecified chronic kidney disease; E11.22 Type 2 diabetes mellitus with diabetic chronic kidney disease; N18.2 Chronic kidney disease, stage 2 (mild); D63.1 Anemia in chronic kidney disease; D69.6 Thrombocytopenia, unspecified; H54.61 Unqualified visual loss, right eye, normal vision left eye; Z86.16 Personal history of COVID-19; Z79.4 Long term (current) use of insulin; Z79.84 Long term (current) use of oral hypoglycemic drugs; Z79.899 Other long term (current) drug therapy; Z88.0 Allergy status to penicillin; Z91.048 Other nonmedicinal substance allergy status; Z20.822 Contact with and (suspected) exposure to COVID-19
CPT/HCPCS: 70450; 70551; 71045; 78452; 80048; 80053; 80061; 82607; 82746; 82962 ×2; 83690; 84484 ×2; 85025 ×2; 93017; 93306; 94760 ×2; 97139 ×4; 99285; A9500; U0002; 36415; 36416; 96372; G0378; J0153; J1650; J1815

== ENCOUNTER 2022-05-26 20:26 | Emergency (ER) | payer OTHER ==
[2022-05-26] MEDS ORDERED: Dexameth. Sod Phosp. 10 MG/ML (CHEMO USE ONLY) ONE (21:43)
== END 2022-05-26 22:04 | disposition home or self-care (01) ==
LOC: ERS 20:26
DX: L29.9 Pruritus, unspecified (principal); R21 Rash and other nonspecific skin eruption; E11.9 Type 2 diabetes mellitus without complications; Z79.4 Long term (current) use of insulin
CPT/HCPCS: 96372; 99282; J1100

== ENCOUNTER 2022-06-22 09:37 | Emergency (ER) | payer OTHER ==
[2022-06-22] MEDS ORDERED: Iopamidol-370 76% 500 ML 1 ML ONE (09:38)
[2022-06-22 10:39] LABS: Hemoglobin 11.1 g/dL (12.0-16.0); Mean Corpuscular HGB CONC 33.1 g/dL (32.0-36.0); Mean Corpuscular Hemoglobin 31.1 pg (27.0-31.0); Mean Platelet Volume 7.9 fL (7.4-10.4); Platelet Count 107 thou/uL (130-400); RBC Distribution Width 12.1 % (11.5-14.5); Red Blood Cell (RBC) Count 3.57 mill/uL (4.20-5.40); White Blood Cell (WBC) Count 7.4 thou/uL (4.8-10.8)
[2022-06-22 10:50] LABS: ALT (SGPT) 21 U/L (8-55); AST (SGOT) 32 U/L (5-34); Alkaline Phosphatase 147 U/L (40-110); Anion Gap 14 mmol/L (10-20); BUN (Urea Nitrogen) 24 mg/dL (9.8-20.1); Bilirubin, Total 0.5 mg/dL (0.2-1.2); Calc. Creatinine Clearance 0 mL/min (70-130); Calcium 8.4 mg/dL (7.8-10.44); Carbon Dioxide 26 mmol/L (23-31); Chloride 104 mmol/L (98-107); Estimated GFR 78; Globulin 3.3 g/dL (2.4-3.5); Glucose 65 mg/dL (83-110); Potassium 3.8 mmol/L (3.5-5.1); Protein, Total 6.3 g/dL (5.8-8.1); Sodium 140 mmol/L (136-145)
[2022-06-22 11:05] LABS: #Eosinphils 0.6 thou/uL (0.0-0.7); #Lymphocytes 1.9 thou/uL (1.20-3.40); #Monocytes 0.5 thou/uL (0.11-0.59); #Neutrophils 4.4 thou/uL (1.40-6.50); %Basophils 0.5 % (0.0-1.0); %Eosinophils 7.5 % (0.0-10.0); %Lymphocytes 26.1 % (21.0-51.0); %Monocytes 6.1 % (0.0-10.0); %Neutrophils 59.8 % (42.0-75.0); Platelet Morphology Comment Appears Decreased; RBC Morphology Normal
[2022-06-22] MEDS ORDERED: Morphine 4 MG/ML VIAL ONE (11:43)
[2022-06-22] MEDS ORDERED: cefTRIAXone\\ROCEPHIN 1 GM VIAL ONE (12:41)
[2022-06-22] MEDS ORDERED: Dexamethasone 10 MG/ML VIAL ONE (12:41)
== END 2022-06-22 13:21 | disposition home or self-care (01) ==
LOC: ERS 09:37
DX: K11.3 Abscess of salivary gland (principal); E11.9 Type 2 diabetes mellitus without complications; Z79.4 Long term (current) use of insulin; Z79.899 Other long term (current) drug therapy
CPT/HCPCS: 70491; 80053; 85025; 96365; 96375; J0696; J1100; J2270; Q9967

== ENCOUNTER 2022-10-23 15:25 | Emergency (ER) | payer OTHER ==
[2022-10-23] MEDS ORDERED: HYDROcodone/Acetaminophen 5/325 mg Tablet ONE (16:02)
[2022-10-23 16:15] LABS: #Eosinphils 0.3 thou/uL (0.0-0.7); #Monocytes 0.4 thou/uL (0.11-0.59); #Neutrophils 2.7 thou/uL (1.40-6.50); %Eosinophils 6.8 % (0.0-10.0); %Lymphocytes 22.7 % (21.0-51.0); %Monocytes 9.2 % (0.0-10.0); %Neutrophils 60.3 % (42.0-75.0); Hemoglobin 12.5 g/dL (12.0-16.0); Mean Corpuscular HGB CONC 33.9 g/dL (32.0-36.0); Mean Corpuscular Hemoglobin 30.6 pg (27.0-31.0); Mean Corpuscular Volume 90.3 fl (78.0-98.0); RBC Distribution Width 12.6 % (11.5-14.5); Red Blood Cell (RBC) Count 4.08 mill/uL (4.20-5.40); White Blood Cell (WBC) Count 4.6 10x3/uL (4.8-10.8)
[2022-10-23 16:30] LABS: Mean Platelet Volume 8.5 fL (7.4-10.4); Platelet Count 80 10x3/uL (130-400); Platelet Morphology Comment Appears Decreased; RBC Morphology Normal
[2022-10-23 16:35] LABS: ALT (SGPT) 24 U/L (8-55); AST (SGOT) 32 U/L (5-34); Albumin 3.1 g/dL (3.4-4.8); Alkaline Phosphatase 231 U/L (40-110); Anion Gap 13 mmol/L (10-20); BUN (Urea Nitrogen) 20 mg/dL (9.8-20.1); Bilirubin, Total 0.8 mg/dL (0.2-1.2); Calc. Creatinine Clearance 0 mL/min (70-130); Calcium 8.8 mg/dL (7.8-10.44); Carbon Dioxide 26 mmol/L (23-31); Chloride 98 mmol/L (98-107); Estimated GFR 42; Globulin 4.1 g/dL (2.4-3.5); Potassium 4.3 mmol/L (3.5-5.1); Protein, Total 7.2 g/dL (5.8-8.1); Sodium 133 mmol/L (136-145)
[2022-10-23 16:40] LABS: Glucose 529 mg/dL (83-110)
[2022-10-23] MEDS ORDERED: Insulin Regular 300 UNITS/3 ML VIAL ONE (16:53)
== END 2022-10-23 17:43 | disposition home or self-care (01) ==
LOC: ERS 15:25
DX: J18.9 Pneumonia, unspecified organism (principal); E11.65 Type 2 diabetes mellitus with hyperglycemia; Z20.822 Contact with and (suspected) exposure to COVID-19; Z79.4 Long term (current) use of insulin
CPT/HCPCS: 71045; 80053; 83605; 84484; 85025; 87804 ×2; 93005; 99284; U0003; U0005; 36415; J1815

== ENCOUNTER 2022-10-28 11:09 | Emergency (ER) | payer OTHER ==
[2022-10-28 13:14] LABS: #Eosinphils 0.2 thou/uL (0.0-0.7); #Lymphocytes 1.4 thou/uL (1.20-3.40); #Monocytes 0.3 thou/uL (0.11-0.59); #Neutrophils 2.7 thou/uL (1.40-6.50); %Basophils 0.5 % (0.0-1.0); %Eosinophils 4.3 % (0.0-10.0); %Monocytes 5.6 % (0.0-10.0); %Neutrophils 58.6 % (42.0-75.0); Hemoglobin 12.5 g/dL (12.0-16.0); Mean Corpuscular Hemoglobin 29.7 pg (27.0-31.0); Mean Corpuscular Volume 90.1 fl (78.0-98.0); Mean Platelet Volume 8.3 fL (7.4-10.4); Platelet Count 119 10x3/uL (130-400); White Blood Cell (WBC) Count 4.5 10x3/uL (4.8-10.8)
[2022-10-28 13:15] LABS: ALT (SGPT) 18 U/L (8-55); AST (SGOT) 25 U/L (5-34); Albumin 3.1 g/dL (3.4-4.8); Alkaline Phosphatase 216 U/L (40-110); Anion Gap 11 mmol/L (10-20); BUN (Urea Nitrogen) 31 mg/dL (9.8-20.1); Bilirubin, Total 0.5 mg/dL (0.2-1.2); Calc. Creatinine Clearance 0 mL/min (70-130); Carbon Dioxide 27 mmol/L (23-31); Chloride 101 mmol/L (98-107); Estimated GFR 57; Globulin 4.3 g/dL (2.4-3.5); Glucose 393 mg/dL (83-110); Protein, Total 7.4 g/dL (5.8-8.1); Sodium 135 mmol/L (136-145)
[2022-10-28] MEDS ORDERED: Clindamycin/D5W 600 mg/50 ml Premix Bag ONE (13:42)
== END 2022-10-28 15:00 | disposition home or self-care (01) ==
LOC: ERS 11:09
DX: L03.115 Cellulitis of right lower limb (principal); E11.9 Type 2 diabetes mellitus without complications; Z79.4 Long term (current) use of insulin
CPT/HCPCS: 36415; 80053; 83605; 85025; 96365; J3490